=== PATIENT | female | born 1990 | race African-American/Black ===

== ENCOUNTER 2019-10-04 09:41 | Emergency (ER) | payer OTHER ==
[~2019-10-04] VITALS: Ht 160 cm; Wt 61.2 kg
[~2019-10-04 09:41] MED LIST: APAP500; BACTRIM DS TAB1 EACH PO; CLARITIN10 MG PO; FLEXERIL PO; IBUPROFEN 600600 M1 PO; IBUPROFEN 800800 M1 PO; KEFLEX500 MG PO; LANOLIN56 GM; LOTRIMIN AF10 ML TP; MACROBID 100 M100 M1 PO; MIRALAX255 GM PO; NITROFURANTOIN100 MG PO; NOHOMEMEDICATIONS; NORCO 7.5-3251 EACH PO; PREDNISONE 20 M20 MG PO; PRENATAL; TUCKS MEDICATE1 EAC1
[2019-10-04 09:42] VITALS: BP 124/65
[2019-10-04] MEDS ORDERED: OXTELLAR XR300 MG PO (09:49)
[2019-10-04] MEDS ORDERED: MOBIC15 MG PO (10:31)
[2019-10-04] MEDS ORDERED: ZOFRAN ODT4 MG PO (10:31)
== END 2019-10-04 10:33 | disposition home or self-care (01) ==
LOC: ER 09:41
DX: B34.9 Viral infection, unspecified (principal); Z79.899 Other long term (current) drug therapy

== ENCOUNTER 2020-08-05 12:26 | Emergency (ER) | payer OTHER ==
[~2020-08-05] VITALS: Ht 160 cm; Wt 59.0 kg
[~2020-08-05 12:26] MED LIST changes: +MOBIC15 MG PO; +OXTELLAR XR300 MG PO; +ZOFRAN ODT4 MG PO
[2020-08-05 12:36] VITALS: BP 131/50
[2020-08-05 12:52] LABS: URINE BILIRUBIN NEGATIVE (Negative); URINE BLOOD 1+ (Negative); URINE CLARITY SL CLOUDY; URINE COLOR YELLOW; URINE GLUCOSE-RANDOM* NEGATIVE (Negative); URINE KETONES NEGATIVE (Negative); URINE NITRITE-REFLEX NEGATIVE (Negative); URINE PROTEIN (DIPSTICK) NEGATIVE (Negative); URINE UROBILINOGEN 0.2 E.U./dl (0.2-1.0)
[2020-08-05 12:53] LABS: URINE LEUKOCYTES-REFLEX 1+ (Negative)
[2020-08-05 13:00] LABS: SQUAMOUS >10 Many /LPF (0-3)
[2020-08-05 13:01] LABS: BACTERIA-REFLEX 1-9 Few /HPF (None Seen); CASTS None Seen /LPF (None Seen); URINE RBC 0-2 Rare /HPF (0-2); URINE WBC-REFLEX 6-15 Few /HPF (0-5)
== END 2020-08-05 13:04 | disposition left against medical advice (07) ==
LOC: ER 12:26
PROVIDERS: Emergency Medicine
DX: O46.91 Antepartum hemorrhage, unspecified, first trimester (principal); Z3A.01 Less than 8 weeks gestation of pregnancy; Z53.21 Procedure and treatment not carried out due to patient leaving prior to being seen by health care provider